=== PATIENT | male | born 1955 | race Two or more races ===

== ENCOUNTER 2016-05-03 08:50 | Inpatient (IN) | payer OTHER ==
[2016-05-03] VITALS (14 sets, daily range): BP systolic 120–154; BP diastolic 65–87; PULSE 55–74; RESP 14–19; O2SAT 96–100
[~2016-05-03] VITALS: Ht 180.3 cm; Wt 109.3 kg
[2016-05-03] MEDS: Lactated Ringer's 1,000 ML IV SCH ×5 (05:00→13:41)
[~2016-05-03 08:50] MED LIST: ATEN25TA PO; Acetaminophen IV 1,000 mg IV ONE; Bupivacaine Liposome 1.3% 20 mL Inj INFILTRATE ONE; CeFAZolin Inj 2 GM in IV Premix 1 EACH IV ONE; HYDR25TA4 PO; IBUP200C11 PO; LISI-567 PO
--- NOTE | 2016-05-03 10:05 | PCM.HPANE ---
Patient Data Surgeon Admitting Provider: Attending Provider:Eliel Kline MD Primary Care Physician:Miko Ortega MD Other Provider:Deleted Reason for Visit Pancreatic Mass Ht/WT & BMI Height (Feet): 5 Height (Inches): 11 Weight (Kilograms): 106.3 Body Mass Index 32.00 Allergies Coded Allergies: No Known Allergies (Unverified , 05/02/16) Past Anesthesia History Anesthesia History: Denies:: Abnormal Airway, Anesthesia Reactions, Difficult Intubation, Fam Anesthesia Reaction Diabetes History Hx Diabetes?: No MRSA MRSA: No Medications Hypertension Medication: Yes (?hctz- per pt in phone note- not documented on med list from md) Home Meds Incl Beta Jorge: Yes Date Beta Jorge Taken: May 03, 2016 Time Beta Jorge Taken: 0700 Reported Medications Atenolol 25 Mg [id number] Mg PO DAILY #30 TABLET Ref 0 05/02/16 Lisinopril 20 Mg [id number] Mg PO DAILY 30 Days Ref 0 05/02/16 Hydrochlorothiazide 25 Mg [id number] Mg PO DAILY 30 Days Ref 0 05/02/16 Ibuprofen (Advil)200 Mg [id number] Mg PO Q6H PRN For Pain 05/02/16 Discontinued Reported Medications Acetaminophen/Codeine 300-30mg (Tylenol/Codeine #3)1 Each Tablet1 Tablet PO Q6H PRN Pain Ref 0 05/02/16 History History of ENT Problems?: No HEENT History: Positive for:: Hearing Problem Denies:: Abnormal Airway Cataracts Difficult Intubation Dysphagia Glaucoma Sinus Problem TMJ Hx of Heart Problems?: Yes Cardiovascular History: Positive for:: Hypertension Denies:: AICD Abdominal Aortic Aneurism Atrial Fibrillation Chest Pain Coronary Artery Disease Heart Murmur Irregular Heartbeat Pacemaker Peripheral Vascular Hx of Respiratory Problem?: No Respiratory History: Denies:: Asthma COPD Emphysema Oxygen Administration Pneumonia Tuberculosis Use of C-PAP Machine Use of Inhalers / NEBS Hx Neurologic Problems?: No Neurological History: Denies:: CVA Dementia Dizziness Headaches Multiple Sclerosis Parkinson's Disease Seizures TIA Hx of GI Problems?: Yes Gastrointestinal History: Denies:: Cirrhosis Diverticulitis Gall Bladder Disease Gastroesphageal Reflux Gastrointestinal Bleeding Heartburn Hepatitis Hiatal Hernia Liver Disease Other GI Pertinent History: pancreatic mass current admission problem Hx of Problems?: No Genitourinary History: Denies:: Kidney Stones Urinary Tract Infection Male Hx: Positive for:: Scrotal Mass (currently has hydrocele- treatment deferred until pancreas resolved) Denies:: Prostate Problems Skin History: Denies:: History Skin Disorders? Pressure Ulcers Hx Musculoskeletal Problems?: No Musculoskeletal History: Denies:: Back Injury (recently pulled muscles in lower back) Degenerative Joint Fibromyalgia Joint Replacement Musculoskeletal Trauma Myasthenia Gravis Osteoarthritis Rheumatoid Arthritis Systemic Lupus Hx of Psycho/Social Problems?: No Psycho Social History: Denies:: Anxiety Hx Depression Hx Surgeries?: Yes (ventral hernia repair, appe) Hx Any Other Health Problems?: Yes Other History: Denies:: Cancer Thyroid Disease History Blood Transfusions: Positive for:: Accept Blood Products? Denies:: Blood Transfusions Hx Diabetes: No Hx Alcohol Use: YesAlcoholic Drinks Per Day: one drink daily- not for last two weeksHx Substance Use: Yes (occasional marijuana)Have You Smoked inLast 12 mo: No Stop/Bang Treated for Sleep Apnea?: No Do You Have a CPAP Machine?: No S-Snoring: Do You Snore Loudly: No T-Tired: feel tired, fatigued: No O-Obsered: Observed not breath: No P-Blood Pressure: treated: Yes B- Body Mass Index > 35 kg/m2: No A- Age over 50: Yes N- Neck Large Circumference: No G- Gender Male: Yes GENEVA Total Score: 3 GENEVA Risk Assessment: Low Risk, <3 Yes Risk Assessment Category Category 1A: Patient has history of documented sleep apnea, and HAS NOT received any narcotic, sedative or anesthesia administration during this stay. Category 1B: Patient has history of documented sleep apnea, and HAS received any narcotic , sedative or anesthesia administration during this stay Category 2: Patient has SUSPECTED Obstructive Sleep Apnea, and HAS received any narcotic , sedative or anesthesia administration during this stay. Category 3: Patient has SUSPECTED Obstructive Sleep Apnea and HAS NOT received narcotic, sedative or anesthesia administration during this stay. Category 4: Outpatient in Procedural Areas with known sleep apnea or who screen positive for High Risk via the STOP/BANG questionnaire. Exam Exam Vital Signs Vital Signs Date Time Temp Pulse Resp B/P Pulse Ox O2 Delivery O2 Flow Rate FiO2 05/03/16 09:07 36.2 61 16 138/87 98 Room Air General Appearance: Oriented X3 HEENT/AIRWAY: MP 2 Lungs: Normal Air Movement Heart: Regular Rate/Rhythm Meds/Labs/Diagnostics Admission Meds Current Medications Acetaminophen 1000 mg/Premix 100 ml @ 400 mls/hr OT ONCE IV Last administered on 05/03/16 09:24; Start 05/03/16 at 06:00; Stop 05/03/16 at 06:14 ; Status DC Lactated Ringer's (Lr) 1,000 ml @ 120 mls/hr Q8H20M IV Last administered on 09:23; Start 05/03/16 at 05:00; Stop 05/03/16 at 13:19 Plan Impression Patient chart reviewed, patient interviewed and anesthestic plan with risks, benefits, and alternatives discussed, and informed consent obtained. NPO Status: 0700 WATER WITH MEDS . BLACK COFFEE AT 0700 ASA Physical Status: ASA2 Mod Systemic Disease Anesthetic Support Modalities: Arterial Line Anesthetic Plan: GA Bene/Risks/Altern/Consents: Yes HP Complete Prior to Induction: Yes Mohamud Moe MD May 03, 2016 10:05
[2016-05-03] MEDS ORDERED: Bupivacaine Liposome 1.3% 20 mL Inj ONE (10:14)
[2016-05-03] MEDS ORDERED: Lactated Ringer's 500 ML IV PRN (10:54)
[2016-05-03] MEDS ORDERED: MetoCLOpramide 5 mg/mL 2 mL Inj IVPUSH PRN ×2 (10:55→14:15)
[2016-05-03] MEDS ORDERED: Ondansetron 2 mg/mL 2 mL Inj IVPUSH PRN ×2 (10:55→14:15)
[2016-05-03] MEDS ORDERED: fentaNYL-PF 50 mCg/mL 2 mL Inj IVPUSH PRN (10:55)
[2016-05-03] MEDS ORDERED: HYDROmorphone 1 mg/mL Inj IVPUSH PRN ×2 (10:55→16:45)
[2016-05-03] MEDS ORDERED: Phenylephrine 10,000 mCg/mL Inj IVPUSH PRN (10:55)
[2016-05-03] MEDS ORDERED: EPHEDrine Sulfate 50 mg/mL Inj IVPUSH PRN (10:55)
[2016-05-03] MEDS ORDERED: Dexamethasone 4 mg/mL Inj IVPUSH PRN (10:55)
[2016-05-03] MEDS ORDERED: Bupivacaine 0.5%/EPI 50 mL Inj INFILTRATE ONE (11:36)
[2016-05-03] MEDS ORDERED: BUPIVACAINE 0.25%/EPI 50 mL Inj INFILTRATE SCH (12:55)
[2016-05-03] MEDS ORDERED: Insulin Human REGular Inj 100 UNIT in 0.9% Sodium Chloride-Pha MIX 100 ML IV SCH (14:11)
[2016-05-03 14:42] LABS: BASOPHILS % (AUTO) 0.1 % (0-3); EOSINOPHILS % (AUTO) 0.2 % (0-5); MONOCYTES % (AUTO) 1.1 % (4-12); Mean Corpuscular Hemoglobin 30.1 pg (27.0-35.0); Mean Corpuscular Volume 87.2 fL (81-100); NEUTROPHILS % (AUTO) 93.2 % (40-74); Platelet Count 238 bil/L (150-400)
--- NOTE | 2016-05-03 14:54 | OP ---
[address] [address] OPERATIVE REPORT PATIENT: VASU PAREKH : 1955 MR#: [id number] ADMIT: 05/03/2016 JOB ID: [id number] DATE OF SURGERY: 05/03/2016 ANESTHESIA: General. PREOPERATIVE DIAGNOSIS(ES): Tail of pancreas mass. POSTOPERATIVE DIAGNOSIS(ES): Tail of pancreas mass. OPERATION: Laparoscopic hand-assisted distal pancreatectomy and splenectomy using intraoperative ultrasound with interpretation. SURGEON: Eliel Kline MD BEATER TENDER: 1. Gorge Mondragon MD (the geriatric assistant was required for the safe and timely completion of the case). 2. Jose Whitman PA-C. COMPLICATIONS: None. ESTIMATED BLOOD LOSS: 20 mL. CONDITION: Satisfactory. SPECIMEN: Tail of pancreas and spleen. FINDINGS: There was no evidence of metastatic disease. The intraoperative ultrasound of the liver was unremarkable. A standard distal pancreatectomy was performed. Frozen section demonstrated clear margin with a gross pathologic examination demonstrating at least a 2 cm margin. INDICATIONS AND SIGNIFICANT HISTORY: The patient is a 60-year-old man who is referred to me for a recurrent ventral incisional hernia. As part of my evaluation in anticipation of the repair of that, I obtained a CT scan which incidentally showed a 2.6 cm mass in the tail of the pancreas. We went on to get further characterization with pancreas protocol CT and then a tagged liver-spleen scan. There is no indication that this was ectopic splenic tissue. Given the image characteristics, recommendation was made for distal pancreatectomy and splenectomy. The patient received his splenectomy vaccines more than two weeks prior to surgery. OPERATIVE TECHNIQUE: The patient was taken into the operating room and placed in supine position. General anesthesia was administered and perioperative antibiotics were given. He was then placed in a semi right lateral decubitus position and the abdomen and flank were prepped and draped in standard surgical fashion. A Short catheter had been placed. A procedural pause was performed. Entry was then gained into the abdomen through a 5 mm incision in the left subcostal area using the Optiview trocar. Pneumoperitoneum was achieved without complication. An additional 5 mm port was inserted in the left subcostal area, as well as a 12 mm port in the left subcostal area. Two 5 mm ports were placed in the upper midline. Eventually those port incisions were combined to create a single hand port incision. I began totally laparoscopic by opening up the short gastrics. When entering the lesser sac a small serosal injury was made on the transverse colon. This was therefore closed laparoscopically with a 3-0 silk suture in two layers. After completely opening up the lesser sac, I used ultrasound to define the limits of the pancreatic tail lesion. I also ultrasounded the liver, which was unremarkable. The patient had a lot of intra-abdominal fat and at this point I decided to place a hand port in the midline to facilitate exposure. With a hand in, I was then easily able to expose the pancreas at the defined transection point. The splenic artery was cephalad to the pancreas and this was 1st circumferentially dissected free and three Hem-o-Loc clips were placed on it, and then it was transected with two clips on the stay side. I then dissected a retropancreatic tunnel and fired a DARREL 60 blue load with a SeamGuard across the pancreas and splenic vein. This was completely hemostatic. I then continued to work my dissection from the transitive pancreatic tail laterally. I also then turned to the splenic flexure and released the colon to create a safe path for ongoing dissection. We also mobilized the spleen. Eventually all my planes of dissection converged and the specimen was completely freed. This was placed in a large laparoscopic bag and then removed through the hand port incision. The surgical bed was inspected and found to be completely hemostatic. I then placed Tisseel along the pancreatic transsection staple line and the arterial stump. A 19-Nigerian ALEX drain was then placed in the area of the pancreatic transection and the omentum placed over the surgical bed. The drain was brought out through the left lateralmost 5 mm port site. The 12 mm trocar site was closed with 0 PDS suture with the laparoscopic suture passer. I then closed the hand port site using running 0 PDS suture. Skin was closed using 4-0 Monocryl. A rectus sheath block was placed using liposomal bupivacaine before completing the closure of the midline incision. The entire procedure was well tolerated, without complication. YSABEL
--- NOTE | 2016-05-03 15:30 | PCM.ANEP1 ---
Post Anesthesia Phase 1 PACU Phase 1 Assessment Vital Signs Vital Signs Date Time Temp Pulse Resp B/P Pulse Ox O2 Delivery O2 Flow Rate FiO2 05/03/16 14:50 57 17 136/80 100 Simple Mask 10 05/03/16 14:35 59 19 140/70 100 Simple Mask 10 05/03/16 14:20 60 15 131/71 100 Simple Mask 10 05/03/16 14:15 58 17 126/75 100 Simple Mask 10 05/03/16 14:10 59 14 127/65 99 Simple Mask 10 05/03/16 14:05 36.5 60 17 124/69 99 Simple Mask 10 05/03/16 14:03 36.6 120/70 05/03/16 09:07 36.2 61 16 138/87 98 Room Air Anesthetic Administered: GA Level of Alertness: Awake, talking Pain: No Nausea or Vomiting: No Oxygen Delivery: Room Air Lungs: Normal Air Movement Mohamud Moe MD May 03, 2016 15:30
--- NOTE | 2016-05-03 15:30 | PCM.ANEP2 ---
Post Anesthesia Evaluation ASA/CMS Post Anesthesia VS in Patient's Normal Range?: Yes Resp Stable; Airway Patent?: Yes CV Function & Hydration Stable: Yes Mental Status Recovered?: Yes Pain control Satisfactory?: Yes N/V Control Satisfactory?: Yes Mohamud Moe MD May 03, 2016 15:30
[2016-05-03] MEDS ORDERED: MetoCLOpramide 5 mg/mL 2 mL Inj ONE (16:17)
[2016-05-03] MEDS ORDERED: fentaNYL-PF 50 mCg/mL 2 mL Inj ONE (16:17)
[2016-05-03] MEDS ORDERED: Neostigmine 1 mg/mL 5 mL Inj ONE (16:17)
[2016-05-03] MEDS ORDERED: Glycopyrrolate 0.2 mg/mL 5 mL Inj ONE (16:17)
[2016-05-03] MEDS ORDERED: Ondansetron 2 mg/mL 2 mL Inj ONE (16:17)
[2016-05-03] MEDS ORDERED: Dexamethasone 4 mg/mL Inj ONE (16:17)
[2016-05-03] MEDS ORDERED: Propofol 10,000 mCg/mL 20 mL Inj ONE (16:17)
[2016-05-03] MEDS ORDERED: Rocuronium 10 mg/mL 5 mL Inj ONE (16:17)
[2016-05-03] MEDS ORDERED: 0.9% Sodium Chloride 100 ML ONE (16:38)
--- NOTE | 2016-05-03 17:01 | NUR ---
Post Op Pt was transferred to OSC room 1001 at 1600 via his bed. Pt is A&ox3. ARANA. Abdominal incisions are C/D/I. Kareem bulb to suction. Short catheter patent and draining to gravity. High flow oxygen mask at 10L O2 per protocol. Pt rates pain at 4/10. Care continues.
[2016-05-03] MEDS: Dextrose 5% Lactated Ringer's 1,000 ML IV SCH (17:49)
[2016-05-03] MEDS: Heparin 5,000 Unit/mL Inj SUBQ SCH (17:50)
[2016-05-03] MEDS: Acetaminophen IV 1,000 MG in IV Premix 1 EACH IV SCH ×2 (20:30→20:39)
[2016-05-03] MEDS: Insulin Human REGular 300 Unit/3 mL Inj SUBQ SCH (20:59)
[2016-05-04] VITALS (7 sets, daily range): BP systolic 129–157; BP diastolic 68–86; PULSE 70–90; RESP 17–20; O2SAT 89–98
[2016-05-04] MEDS: Heparin 5,000 Unit/mL Inj SUBQ SCH ×3 (01:36→18:43)
[2016-05-04] MEDS: Acetaminophen IV 1,000 MG in IV Premix 1 EACH IV SCH ×2 (02:34→10:08)
[2016-05-04] MEDS: Dextrose 5% Lactated Ringer's 1,000 ML IV SCH ×2 (02:41→15:11)
[2016-05-04] MEDS: Insulin Human REGular 300 Unit/3 mL Inj SUBQ SCH ×4 (02:44→20:35)
[2016-05-04 05:36] LABS: BASOPHILS % (AUTO) 0.1 % (0-3); EOSINOPHILS % (AUTO) 0 % (0-5); MONOCYTES % (AUTO) 12.2 % (4-12); Mean Corpuscular Volume 87.8 fL (81-100); NEUTROPHILS % (AUTO) 79.3 % (40-74); Platelet Count 200 bil/L (150-400)
[2016-05-04] MEDS ORDERED: Insulin Human REGular Inj 100 UNIT in 0.9% Sodium Chloride-Pha MIX 100 ML IV SCH (08:25)
[2016-05-04] MEDS ORDERED: Insulin Human REGular 300 Unit/3 mL Inj SUBQ SCH (08:30)
--- NOTE | 2016-05-04 10:59 | PROG NOTE ---
[address] [address] PROGRESS NOTE PATIENT: VASU PAREKH : 1955 MR#: [id number] ADMIT: 05/03/2016 JOB ID: [id number] DATE: 05/04/2016 SUBJECTIVE: The patient is seen postoperative day one from laparoscopic distal pancreatectomy and splenectomy for a tail of pancreas mass. The patient did fine overnight. His blood sugars were a little poorly controlled which is disappointing. OBJECTIVE: He has remained afebrile, hemodynamically normal. This morning he is alert, oriented and mildly uncomfortable but doing okay. His Short has clear urine in it. His abdomen is a little bit distended but soft and not significantly tender. His dressings are clean, dry, and intact. His ALEX drain remains in place with a little bit of bloody output. Yesterday, he had a total of 1.2 L of urine with an additional 800 overnight. His ALEX drain had 15 recorded out yesterday with additional five overnight. His blood sugar has been ranging in the mid 200s. His white blood cell count is 14.8 this morning, down from 15.8 in the postoperative period. His hematocrit is stable at 41. His creatinine is fine at 0.87. ASSESSMENT AND PLAN: This is a 60-year-old, obese male on postoperative day one from distal pancreatectomy and splenectomy for a tail of pancreas mass. Overall, the patient is doing well. His Short catheter can come out this morning. He can slowly advance his diet. I have encouraged him to get up and ambulate. I am not satisfied with his blood sugar control. I have ordered him to be placed on an insulin drip. I discussed this with the nurse. Target blood sugars range of 110-150. I hope that this is just perioperative stress hyperglycemia, although given that I did remove part of his pancreas, it is possible that he will require ongoing management of diabetes. I will wait and see how he does over the next day or so before considering starting him on long-term therapy. His ALEX drain looks okay. I have ordered ALEX drain amylase which is still pending. The ALEX drain will remain in to at least postoperative day three at which time another ALEX drain amylase will be checked. If there is any evidence of pancreatic leak, the ALEX drain will remain in until that has resolved.
[2016-05-04] MEDS: Polyethylene Glycol (PEG) 17 Gm Powder PO SCH (12:39)
--- NOTE | 2016-05-04 19:21 | NUR ---
BS/Activity Blood sugar checks q6 hours. Contact workplace relations adviser surgeon if blood sugars > 180 times 2. Patient up ambulating in room independently. Uses call light appropriate and requires assistance when getting back in bed. Call light and tray table within reach. Will continue to monitor patient hourly.
[2016-05-05] MEDS: Heparin 5,000 Unit/mL Inj SUBQ SCH ×3 (02:21→18:11)
[2016-05-05] MEDS: Insulin Human REGular 300 Unit/3 mL Inj SUBQ SCH ×4 (02:45→21:47)
[2016-05-05] MEDS: Dextrose 5% Lactated Ringer's 1,000 ML IV SCH ×2 (03:41→16:28)
--- NOTE | 2016-05-05 03:58 | NUR ---
BS/Pain pt first blood sugar check was 200 and he was given 4 units of insulin. at 0230 his BG was 143 and he was given another 2 units. will continue to monitor BG pt consistently rates his pain a 4/10 which he says is "good". 10 mg of oxycodone and 975mg of tylenol is being alternated for pain control. he is able to get out of bed without assistance, he walks slowly but he is steady on his feet. care continues.
[2016-05-05 06:07] LABS: Mean Corpuscular Hemoglobin 29.7 pg (27.0-35.0); Mean Corpuscular Volume 84.4 fL (81-100)
[2016-05-05 06:10] VITALS: BP 150/81; PULSE 86; RESP 17; O2SAT 89
--- NOTE | 2016-05-05 08:41 | PCM.PNSURG ---
Subjective Visit Information: Reason for Visit Pancreatic Mass Surgery/Surgery Date Post-Op Day # Date of Admission: May 03, 2016 at 16:16 Hospital Day # Subjective: having some pain, no flatus or BM yet since surgery, ALEX in place, abd slightly distended Objective Objective Awake in bed Abd: slight distention, some tenderness adjacent to LLQ incisions, ALEX --> serosang 5 cc recorded Vital Sign- Last 8 Hours Date Time Temp Pulse Resp B/P Pulse Ox O2 Delivery O2 Flow Rate FiO2 05/05/16 06:10 36.8 86 17 150/81 89 Room Air Intake and Output- Last 8 Hour 05/05/16 Cumulative From/Thru 07:00 05/02/16 12:03 - 05/05/16 05:48 Intake Total 1100 ml 5521 ml Output Total 1005 ml 3675 ml Balance 95 ml 1846 ml Intake Oral 1100 ml 2972 ml IV Total 2549 ml Output Urine Total 1000 ml 3550 ml Drainage Total 5 ml 45 ml Estimated Blood Loss 80 ml # Bowel Movements 0 0 Result Diagram: 05/05/16 0527 05/04/16 0505 Assessment & Plan Impression POD #2 s/p distal panc and splenectomy WBC 20.9 Problems: Plan Pain control Send ALEX fluid for amylase (ordered yesterday) Ambulate Await bowel function return Monitor WBC and platelet count Ventura Augustin MD May 05, 2016 08:41
[2016-05-05 10:10] VITALS: BP 128/71; PULSE 80; RESP 16; O2SAT 90
[2016-05-05] MEDS: Polyethylene Glycol (PEG) 17 Gm Powder PO SCH (11:35)
--- NOTE | 2016-05-05 14:38 | NUR ---
NUTRITION ASSESSMENT: ASSESS:60 YO male admitted with pancreatic mass, POD #2 following laparoscopic distal pancreatectomy and splenectomy, per SCOAP protocol. Patient c/o pain; there has been no flatus or BM since surgery, ALEX in place, abd slightly distended. Diet advanced to full liquids to include Impact Advanced Recovery. Patient taking sips of Impact and full liquids. PMHx:HTN, pancreatic mass, ventral hernia repair. DIET:Full liquids. LABS: Reviewed. No labs ordered today. MEDICATIONS: Reviewed. Insulin. NUTRITION FOCUSED PHYSICAL ASSESSMENT: GI symptoms / stool: No BM.Drew: 20 Skin Integrity: No issues reported. ANTHROPOMETRICS: Current Wt: 106.1 kgBMI: 32.0 kg/j6Bflia weight: 108.86 kg IBW: 78.18 kg (139% IBW) ESTIMATED NEEDS (GI SURGERY, CLASS I OBESITY): Calories: 1955 - 2345 kcal (25 - 30 kcal / kg IBW) Protein: 141 - 156 g protein (1.8 - 2.0 g / kg IBW) Fluid: 3183 mL (Approx. 30 mL / kg BW) NUTRITION DIAGNOSIS: 1)Increased nutrient needs related to SCOAP surgery, as evidenced by protocol that requires Impact Advanced Recovery all trays post-surgery. INTERVENTION: 1) No additional intervention at this time. MONITOR/EVALUATE: Diet advance / tolerance, PO intake, labs, GI/nutrition status. Follow up per moderate nutrition risk guidelines.
[2016-05-05 15:07] VITALS: BP 145/79; PULSE 83; RESP 20; O2SAT 88
[2016-05-05 17:11] VITALS: PULSE 82; RESP 18; O2SAT 93
--- NOTE | 2016-05-05 18:41 | NUR ---
Oxygen/NPO Pt up in BR at 1500 when ENDOSCOPY SPECIALTY TECHNICIAN went to do vitals and found pt O2 at 88%. NC applied to 2L and O2 remained at 88%. Increased to 3.5L and O2 was at 91%. Listened to lungs sounds and posterior lungs sounds especially at bases are markedly decreased. Reeducated pt that he needs to be coughing and deep breathing, but pt takes small shallow breathes even when encouraged. Pt's abdomen is distended and tender and pt is not passing gas or having BM. paged about all above and changed pt to NPO other than sips with meds, added D5LR at 80 and wants IS, which was previously ordered, but not in room. Last BG was 180, 2 units given and MD aware. Care continues.
--- NOTE | 2016-05-05 19:13 | NUR ---
IV Fluids Obtained verbal order for LR at [address] Augustin, then saw order for D5LR in computer and hung that at 1628. paged at 1705 asking why it wasn't LR. Stopped D5LR and hung new bag of LR. bracer RN aware.
[2016-05-05] MEDS ORDERED: Lactated Ringer's 1,000 ML IV SCH (19:45)
[2016-05-05 20:39] VITALS: BP 148/89; PULSE 83; RESP 20; O2SAT 92
[2016-05-06] VITALS: BP 145/72; PULSE 73; RESP 18; O2SAT 92
[2016-05-06] MEDS: Heparin 5,000 Unit/mL Inj SUBQ SCH ×4 (00:54→23:48)
[2016-05-06] MEDS: Insulin Human REGular 300 Unit/3 mL Inj SUBQ SCH ×4 (02:30→21:51)
[2016-05-06] MEDS: Dextrose 5% Lactated Ringer's 1,000 ML IV SCH (03:54)
[2016-05-06 05:37] VITALS: BP 153/82; PULSE 75; RESP 20; O2SAT 96
--- NOTE | 2016-05-06 05:50 | NUR ---
Pain/ALEX/Blood Glucose Pt c/o 08/18 pressure/gas pain at start of shift. Up several times to BR with some gas relief and small BM. Pt reported feeling "much better" this morning after IV Toradol administered at 0300. ALEX output 5cc, specimen sent for amylase. Patient encouraged to ambulate, deep breathe and use IS hourly. Midline dressing CDI. Q6 Glucose checks: 156, 136
[2016-05-06 06:21] LABS: BASOPHILS % (AUTO) 0.1 % (0-3); EOSINOPHILS % (AUTO) 0.8 % (0-5); MONOCYTES % (AUTO) 9.6 % (4-12); Mean Corpuscular Hemoglobin 29.7 pg (27.0-35.0); Mean Corpuscular Volume 89.9 fL (81-100); NEUTROPHILS % (AUTO) 82.3 % (40-74); Platelet Count 173 bil/L (150-400)
--- NOTE | 2016-05-06 07:59 | PCM.PNSURG ---
Subjective Visit Information: Reason for Visit Pancreatic Mass Surgery/Surgery Date Post-Op Day # Date of Admission: May 03, 2016 at 16:16 Hospital Day # Subjective: feels much better now that he's passed quite a bit of gas, no BM Objective Objective Arousable in bed Abd: still distended, incisions clean, soft Vital Sign- Last 8 Hours Date Time Temp Pulse Resp B/P Pulse Ox O2 Delivery O2 Flow Rate FiO2 05/06/16 05:37 36.8 75 20 153/82 96 Nasal Cannula 3.00 05/06/16 03:43 Supplement Oxygen Intake and Output- Last 8 Hour 05/06/16 Cumulative From/Thru 07:00 05/02/16 12:03 - 05/06/16 05:39 Intake Total 875 ml 7615 ml Output Total 555 ml 4706 ml Balance 320 ml 2909 ml Intake Oral 0 ml 4080 ml IV Total 875 ml 3535 ml Output Urine Total 550 ml 4550 ml Drainage Total 5 ml 76 ml Estimated Blood Loss 80 ml # Bowel Movements 1 1 Result Diagram: 05/06/1630 05/06/1630 Assessment & Plan Impression POD #3 s/p distal panc and splenectomy WBC down to 18 Problems: Plan Restart clear liquids Ambulate Re-check ALEX amylase again today Incentive spirometer Pain control Ventura Augustin MD May 06, 2016 07:58
[2016-05-06 10:00] VITALS: BP 128/68; PULSE 72; RESP 19; O2SAT 95
--- NOTE | 2016-05-06 11:02 | NUR ---
Social Work- Assessment Data: Pt is a 60 year old male admitted 05/03/16 for pancreatic mass per H&P. Pt's insurance is [employer]. PCP is Miko Ortega MD. SW spoke with patient at bedside to discuss discharge planning, SW role explained. Pt alert and oriented x3. Pt resides in [place] with where he remains independent with his ADLs. Pt uses no DME and has no SNF or HH history. Pt continues to drive. SW discussed DPOA, left paperwork. Pt has no LTC or VA benefits. Pt continues to ambulate in room and dickerson. SW left phone number and plan on whiteboard. Pt to discharge home with to transport, no anticipated discharge needs. SW will continue to follow. Assessment: Pt who is independent at discharge Plan: Pt to discharge home when medically stable, to transport via POV. No anticipated discharge needs, SW continues to follow. Sharon Gallegos MSW
[2016-05-06] MEDS: Polyethylene Glycol (PEG) 17 Gm Powder PO SCH (12:23)
--- NOTE | 2016-05-06 14:49 | NUR ---
Pain, activity Pt reports a 1/10 pain at rest and 3/10 pain w/ activity. PO Tylenol administered as per schedule. Pt encouraged to ambulate throughout shift. So far he has made 7 laps around the department w/ steady gait Passing gas, although, painful. Offered IVP Toradol and PO Mary, pt has declined. Bed down and locked, call light w/in reach and used appropriately
[2016-05-06 15:18] VITALS: BP 135/77; PULSE 76; RESP 18; O2SAT 91
--- NOTE | 2016-05-06 18:50 | NUR ---
patient has ambulated the halls multiple times throughout this shift with no difficulties. Addendum: 05/06/16 at 1851 by MARTINE LINDSYA CNA Amended: Links added.
[2016-05-07] MEDS: Insulin Human REGular 300 Unit/3 mL Inj SUBQ SCH ×4 (02:30→20:30)
[2016-05-07 03:51] VITALS: BP 153/83; PULSE 75; RESP 20; O2SAT 93
--- NOTE | 2016-05-07 05:03 | NUR ---
Pain/IV Pt continues to have c/o gas pressure, states 2/10 which is tolerable. Receiving routine tylenol q6hrs, up in room moving around and back/forth to restroom. IV not patent and coming out, causing pain- no IV fluids running- D/C'd IV intact.
[2016-05-07 06:57] LABS: BASOPHILS % (AUTO) 0.2 % (0-3); EOSINOPHILS % (AUTO) 5.5 % (0-5); MONOCYTES % (AUTO) 10.7 % (4-12); Mean Corpuscular Hemoglobin 29.1 pg (27.0-35.0); Mean Corpuscular Volume 88.6 fL (81-100); Platelet Count 215 bil/L (150-400)
[2016-05-07] MEDS: Heparin 5,000 Unit/mL Inj SUBQ SCH ×2 (10:15→16:30)
--- NOTE | 2016-05-07 10:24 | PCM.PNSURG ---
Subjective Date of Service: May 07, 2016 Visit Information: Reason for Visit Pancreatic Mass Surgery/Surgery Date Post-Op Day #4 Date of Admission: May 03, 2016 at 16:16 Hospital Day # Subjective: Requesting more substantial food and hospital discharge. IV is out. No need for analgesic as the patient has no pain. Drinking liquids with no nausea or vomiting, minimal bloating. Passing flatus but has not had a bowel movement. Ambulating without assistance. Postop General: Other (as above) Gastrointestinal: Good Appetite, Tolerating Oral Feedings, No N/V, Passing Flatus Pain Management: No or Minimal Pain Postop Activity: Ambulating Independently Objective Vital Sign- Last 8 Hours Date Time Temp Pulse Resp B/P Pulse Ox O2 Delivery O2 Flow Rate FiO2 05/07/16 03:51 36.6 75 20 153/83 93 Room Air Intake and Output- Last 8 Hour 05/07/16 Cumulative From/Thru 07:00 05/02/16 12:03 - 05/07/16 03:51 Intake Total 800 ml 9314 ml Output Total 795 ml 6306 ml Balance 5 ml 3008 ml Intake Oral 800 ml 5500 ml IV Total 3814 ml Output Urine Total 775 ml 6125 ml Drainage Total 20 ml 101 ml Estimated Blood Loss 80 ml # Bowel Movements 0 1 General: Alert, Cooperative, No Acute Distress Lungs: Clear to Auscultation Heart: Regular Rate/Rhythm, No Murmurs/Rubs/Gallops Abdomen: Soft, Non-tender, Non-distended SURGICAL WOUND : Wound General Appearence: Steri Strips, Sutures, Intact, Well Approximated, No Erythema, No Discharge Wound Drainage Type: ALEX Drain #1 (20 mL of serosanguineous output over the last 8 hours.) Extremities: Thigh&Calf Soft/Nontender Neuro: Normal Speech Catheters: None (voiding without difficulty) Result Diagram: 05/07/16 0635 05/06/16 0530 Additional Information: Most recent bedside fingerstick glucose is 117 Assessment & Plan Impression Primary diagnosis: Tail of pancreas mass, pathology pending. POD #4 with stable blood sugars, returning bowel function, and healing wounds. Other diagnosis: Hypertension Problems: Plan 1. Soft diet. 2. If soft diet tolerated the patient will be discharged to home today with ALEX and return next week in follow-up with Dr. Kline. 3. May shower Pain Management: 1. Oral Tylenol 2. Oxycodone for breakthrough pain. VTE Prophylaxis: Sub-Q Heparin (Unfractionated) Resuscitation Status: CPR: Attempt Resuscitation copies to: Miko Ortega MD, Fred H PA-C May 07, 2016 10:24
--- NOTE | 2016-05-07 10:30 | PCM.DISURG ---
Surgical Discharge Instruction Date of Service May 07, 2016 Dates of Hospitalization Date of Hospital Admission May 03, 2016 at 16:16 Providers Admitting Physician: Eliel Kline MD Primary Care Physician: Miko Ortega MD Attending Physician: Eliel Kline MD Discharge Diagnosis Discharge Diagnosis Primary diagnosis: Tail of pancreas mass, pathology pending. Other diagnosis: Hypertension Post Operative diagnosis Same Diet Discharge Diet: Other (soft diet, advance as tolerated) Activity Discharge Activity-General: Try not to overdue, Balance rest and activity, No driving while taking narcotic Dressing and Incisional Care Dressing Care: Allow Steri Stripes to fall off Hygiene: May shower Additional Instructions Discharge Instructions Nursing to instruct the patient on how to advance his diet. Additional Instructions ALEX drainage for random amylase on follow-up appointment. Follow Up Plan Follow-up Provider (F9): Eliel Kline MD Follow-up appointment: Weeks (1 week) Call your provider for: Fever, Chills, Increasing abdominal pain, Nausea, Vomiting, Wound redness, Increasing wound pain, Warmth to touch, Discharge @ incision, pus discharge Jose Whitman PA-C May 07, 2016 10:30 Jose Whitman PA-C May 07, 2016 10:30
[2016-05-07] MEDS ORDERED: OXYC5TAB72 PO (10:33)
[2016-05-07] MEDS ORDERED: POLY17PO6 PO (10:33)
--- NOTE | 2016-05-07 10:43 | NUR ---
Social Work- Readiness for Discharge/Discharge Data: Pt is on day 4 of hospitalization for pancreatic mass per H&P. Pt is medically stable for discharge today. Per RN notes, pt has been up ambulating in the [facility]. Pt to discharge home with to transport, no discharge needs. Assessment: Pt who is independent at discharge Plan: Pt to discharge home today, to transport via POV. No discharge needs, ZACHARY Page
--- NOTE | 2016-05-07 10:44 | PCM.DC.SUR ---
Discharge Summary Date of Service: May 07, 2016 Date of Hospital Admission: May 03, 2016 at 16:16 Date of Operation(s): 05/03/2016 Date of Discharge: 05/07/2016 Diagnosis at Time of Discharge Primary diagnosis: Tail of pancreas mass, pathology pending. Other diagnosis: Hypertension Problems: Operation Laparoscopic hand-assisted distal pancreatectomy and splenectomy using intraoperative ultrasound with interpretation. Brief History and Physical: The patient is a 60-year-old man who was referred for a recurrent ventral incisional hernia. As part of his evaluation in anticipation of the repair of that, a CT scan was obtained which incidentally showed a 2.6 cm mass in the tail of the pancreas. Further characterization with pancreas protocol CT and then a tagged liver-spleen scan was obtained. There was no indication that this was ectopic splenic tissue. Given the image characteristics, recommendation was made for distal pancreatectomy and splenectomy. The patient received his splenectomy vaccines more than two weeks prior to surgery Consultants: None Hospital Course: The patient was admitted and underwent the above-mentioned operation without complication. Postsurgical hyperglycemia was treated with intravenous insulin infusion. Fingerstick blood glucose was 117 at the time of discharge. ALEX drain amylase on the second and third postsurgical day was 460 and 578. The patient was discharged to home with ALEX in place. A repeat ALEX drain random amylase will be obtained at his clinic follow-up visit. Otherwise the patient' s recovery was fairly uneventful. At the time of discharge the patient was tolerating a soft diet with no nausea or vomiting, he was passing flatus, his wounds were dry and intact, he was ambulating without assistance, and comfortable with only Tylenol for pain control. Pathology: Pending Disposition: The patient was discharged to home on his fourth postsurgical day. Follow-up Plan: He will follow-up in the office with Dr. Kline with a repeat ALEX drainage amylase in 1 week. Atenolol (Atenolol) 25 Mg Tablet 25 MG PO DAILY (Reported) Hydrochlorothiazide (Hydrochlorothiazide) 25 Mg Tablet 25 MG PO DAILY (Reported ) Ibuprofen (Advil) 200 Mg Capsule 800 MG PO Q6H PRN PRN For Pain (Reported) Lisinopril (Lisinopril) 20 Mg Tablet 20 MG PO DAILY (Reported) Polyethylene Glycol 3350 (Miralax) 17 Gm Powd.pack 17 GM PO NOON oxyCODONE (oxyCODONE) 5 Mg Tablet 5-10 MG PO Q6H PRN PRN For Moderate Pain copies to: Miko Ortega MD, Fred H PA-C May 07, 2016 10:44
[2016-05-07] MEDS: Polyethylene Glycol (PEG) 17 Gm Powder PO SCH (12:00)
[2016-05-07 12:51] VITALS: BP 124/73; PULSE 73; RESP 16; O2SAT 94
--- NOTE | 2016-05-07 19:35 | NUR ---
Blood Glucose Pt's AM BG 154. MD had planned discharge, but wanted pt to eat soft diet and see if tolerated and recheck BG prior to leaving. Pt able to tolerate toast this AM and lunch w/o N/V or any pain. Pt able to have large BM today. PM BG was 192, 2 units given and discharge held for tomorrow. MD will recheck in AM. Pt upset and anxious over BG control and is wanting glucometer for home, so he can keep track. Advised to discuss with MD tomorrow.
[2016-05-07 20:05] VITALS: BP 146/82; PULSE 72; RESP 17; O2SAT 95
[2016-05-08] MEDS: Insulin Human REGular 300 Unit/3 mL Inj SUBQ SCH ×2 (01:24→08:30)
[2016-05-08] MEDS: Heparin 5,000 Unit/mL Inj SUBQ SCH ×2 (01:24→08:30)
[2016-05-08 05:18] VITALS: BP 162/90; PULSE 77; RESP 17; O2SAT 94
--- NOTE | 2016-05-08 05:48 | NUR ---
Sleep/Pain/Blood sugar Pt requested ambien at for sleep and refused his 0230 tylenol. He states the ambien was only helpful for 3hrs. Stated his pain 03/20 and did not want routine tylenol. Blood sugar 123 and 116.
[2016-05-08] MEDS ORDERED: INSU100V28 SUBQ (08:22)
[2016-05-08 08:30] VITALS: BP 150/89; PULSE 83; RESP 16; O2SAT 95
--- NOTE | 2016-05-08 10:22 | PROG NOTE ---
[address] [address] PROGRESS NOTE PATIENT: VASU PAREKH : 1955 MR#: [id number] ADMIT: 05/03/2016 JOB ID: [id number] DATE: 05/08/2016 SUBJECTIVE: The patient is seen postoperative day five from his laparoscopic hand assisted distal pancreatectomy and splenectomy. 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 The patient continues to do well and is very eager to go home. The plan had been for him to discharge yesterday, but due to elevated blood sugars, he was kept for an additional night. His blood sugars this morning have been well controlled at 120. He has remained afebrile. Hemodynamically normal. This morning he is up. He is alert and oriented and comfortable. His incision looks fine. He is having minimal abdominal pain. ASSESSMENT AND PLAN: This is a 60-year-old man five days out from a laparoscopic distal pancreatectomy, splenectomy for a well-differentiated neuroendocrine tumor. The patient can go home today. I am going to send him home on a sliding insulin scale. I anticipate that his insulin requirements are going to continue to decrease and that this will just be a short-term medication. He is going to go home with his ALEX drain in and I will followup in the clinic with a ALEX drain and amylase recheck later this week or early next week.
--- NOTE | 2016-05-08 11:17 | NUR ---
Discharge Pt discharged at 1106 to private vehicle with . Pt A&O x 3, ARANA, no c/o pain. Incisions well approximated with steri-strips intact. ALEX drain set to suction and pt educated on how to strip drain, measure output and reset to suction. Pt has all discharge instructions, care notes and rx's. Pt understands he needs to call MD office for f/u appt and to have fluid in drain for that appt. Blood glucose and insulin teaching done prior to discharge by MOC RN. Pt had no IV. Pt has all belongings and all questions answered. Pt understands s/s of when he would need to return to hospital.
== END 2016-05-08 11:07 | disposition home or self-care (01) | DRG 828 ==
LOC: SAS 08:50 → OSC 16:16
PROVIDERS: ADMIT General Practice; ATTEND General Practice
PROC: 07TP0ZZ Resection of Spleen, Open Approach (ICD-10-PCS; 2016-05-03)
PROC: 0FBG0ZX Excision of Pancreas, Open Approach, Diagnostic (ICD-10-PCS; principal; 2016-05-03 10:45)
DX: C7A.8 Other malignant neuroendocrine tumors (principal); Z53.31 Laparoscopic surgical procedure converted to open procedure; I10 Essential (primary) hypertension

== ENCOUNTER 2016-05-10 20:30 | Inpatient (IN) | payer OTHER ==
[~2016-05-10] VITALS: Ht 180.3 cm; Wt 102.4 kg
[~2016-05-10 20:30] MED LIST changes: -Acetaminophen IV 1,000 mg IV ONE; -Bupivacaine Liposome 1.3% 20 mL Inj INFILTRATE ONE; -CeFAZolin Inj 2 GM in IV Premix 1 EACH IV ONE; +INSU100V28 SUBQ; +OXYC5TAB72 PO; +POLY17PO6 PO
[2016-05-10 21:55] VITALS: BP 142/74; PULSE 103; RESP 22; O2SAT 95
--- NOTE | 2016-05-10 22:00 | NUR ---
NEW ADMIT Pt arrived from [facility] were had complained of crushing chest pain. Pt was given nitro which did relieve the chest pain. Pt recently had an abdominal surgery to removed a tumor in his pancreas and spleen. Pt was discharged from [facility] on Saturday but went to [facility] with the chest pain and a fever, WBC was 19.5, chest x-ray showed possible pneumonia. Pt is independent in the room, vitals stable, admission assessment complete. No other issues noted at this time.
[2016-05-10 22:18] VITALS: PULSE 101
[2016-05-10] MEDS ORDERED: Polyethylene Glycol (PEG) 17 Gm Powder PO ONE (22:30)
[2016-05-10] MEDS ORDERED: Ondansetron 2 mg/mL 2 mL Inj IVPUSH PRN (22:30)
[2016-05-10] MEDS ORDERED: Glucose 40% Oral Gel 15 Gm Tube PO PRN (22:35)
[2016-05-10] MEDS ORDERED: Piper-Tazo 3.375 Gm/50 mL D5W Minibag Plus - Q8H over 4 hrs IV ONE ×2 (22:45)
[2016-05-10] MEDS: Lactated Ringer's 1,000 ML IV SCH (22:55)
[2016-05-11] VITALS (10 sets, daily range): BP systolic 107–168; BP diastolic 56–104; PULSE 75–100; RESP 18–40; O2SAT 91–96
--- NOTE | 2016-05-11 00:29 | HP ---
[address] [address] HISTORY AND PHYSICAL PATIENT: VASU PAREKH : 1955 MR#: [id number] ADMIT: 05/10/2016 JOB ID: [id number] IDENTIFICATION AND CHIEF COMPLAINT: A 60-year-old man admitted with postoperative fever. HISTORY OF PRESENT ILLNESS: The patient was recently discharged from the hospital on May 07, having undergone a laparoscopic hand-assisted distal pancreatectomy and splenectomy on May 03, 2016. He reports doing well at home and then having left chest pain today. He called his son, who told him to call 911, and he was taking at [facility], where he had a negative cardiac workup but was noted to have a temperature of 103 degrees, an elevated white blood cell count and an abnormal CT scan. According to the patient, his chest pain has resolved. He tells me that his Shahram-Hawkins drain that he went home with has only put out 3 cc over the previous 24 hours of clear fluid. He denies night sweats or feeling febrile. He actually feels quite well at this moment. PAST MEDICAL HISTORY: Hypertension, recent elevated blood glucoses following his distal pancreatectomy, known umbilical hernia. MEDICATIONS: Atenolol, lisinopril, hydrochlorothiazide, ibuprofen, sliding scale insulin per Dr. Kline. ALLERGIES: None. SOCIAL HISTORY: Unchanged since recent history and physical. FAMILY HISTORY: Unchanged since recent history and physical. REVIEW OF SYSTEMS: Unchanged since recent history and physical. PHYSICAL EXAMINATION: Temperature is 37.4, blood pressure is 142/74, heart rate is 100, respirations 22, room air saturation 95%. He appears in no acute distress. Lungs are clear. Heart sounds are regular. His abdomen is soft. His incisions are healing well. Shahram-Hawkins drain has serous fluid, minimal amount of fluid in the bulb. Rectal examination is not performed. Extremities without edema. Labs from [facility] are reported as a hematocrit of 36.8 (his hematocrit was 38 on discharge), white blood cell count of 19.5 with 88.2% of neutrophils. Electrolytes are relatively normal with a sodium of 135, potassium of 3.6, chloride of 97, and a bicarb of 28. BUN and creatinine show an elevated BUN of 22 and a creatinine of 0.7. Liver function tests show a normal bilirubin, mild elevation of alkaline phosphatase at 147, and elevated AST and ALT at 81 and 181. His blood glucose is elevated at 165. Albumin is 3.2. UA was negative. His CT scan, I have reviewed the films, as well as the report. This shows the Shahram-Hawkins drain in the left upper quadrant and what appears to be a fair amount of fluid versus phlegmon in the pancreatic bed. There are small bubbles of free air that I think that are up over the liver and in the midline, and I think are not inconsistent with having had a hand-assisted laparoscopic pancreatectomy and splenectomy back just 1-2 weeks ago. IMPRESSION AND PLAN: Postop fever documented to 103 degrees at the other institution. He is currently afebrile, does not appear in significant distress. He reportedly received a dose of broad-spectrum IV antibiotics at [facility]. I will admit him to the progressive care unit, give him some IV fluid and clear liquids, put him on sliding scale insulin, continue his p.o. antihypertensives. I will start him on Zosyn, recheck his white count in the morning. I will leave it up to Dr. Kline regarding further workup regarding his abdomen. I suspect that he has fluid that is loculated off from his Shahram-Hawkins drain and that he may have benefit from Intervention Radiology placing a drain in the phlegmon.
[2016-05-11 03:05] LABS: BASOPHILS % (AUTO) 0.2 % (0-3); EOSINOPHILS % (AUTO) 0.2 % (0-5); MONOCYTES % (AUTO) 8.7 % (4-12); Mean Corpuscular Hemoglobin 29.6 pg (27.0-35.0); Platelet Count 358 bil/L (150-400)
--- NOTE | 2016-05-11 05:24 | NUR ---
BLOOD SUGARS/ALEX DRAIN Pt had a pancreatectomy and splenectomy due to a tumor. Pt's blood sugars were 146 last night, no correctional sliding scale insulin given. Pt's ALEX drain to the LUQ had minimal output < 5cc of serosanguineous fluid. Pt is cooperative and compliant with care. Uneventful night, no other issues noted.
[2016-05-11] MEDS: Insulin LISPRO 300 Unit/3 mL Inj SUBQ SCH ×4 (08:00→21:38)
[2016-05-11] MEDS: Piperacillin-Tazo 3.375 Gm Inj 3.375 GM in Dextrose 5% Minibag Plus 50 ML IV SCH ×2 (08:19→16:55)
--- NOTE | 2016-05-11 08:20 | PROG NOTE ---
[address] [address] PROGRESS NOTE PATIENT: VASU PAREKH : 1955 MR#: [id number] ADMIT: 05/10/2016 JOB ID: [id number] DATE: 05/11/2016 SUBJECTIVE: The patient is seen in followup for his readmission after recent distal pancreatectomy. The patient tells me he is overall doing okay. He denies any pain. He tells me that prior to admission he was tolerating a regular diet having good bowel function. He is having a little bit of difficulty taking a deep breath, but he is not sure why. He was tachycardic upon admission. This morning he is afebrile and hemodynamically normal. He is alert and oriented and appears comfortable. His abdomen is soft, nontender, nondistended. His incision looks fine. His ALEX drain is putting out scant output with only 5 cc recorded overnight. LABORATORIES: Work early this morning showed a white blood cell count of 25.8, hematocrit of 37.5, a creatinine of 0.77, a blood sugar of 160. ASSESSMENT AND PLAN: This is a 60-year-old man status post recent distal pancreatectomy admitted with what looks like uncontrolled pancreatic leak. I reviewed his outside images. This shows a phlegmon at the transection point of the pancreas consistent with a leak. Unfortunately his surgical drain is not in the vicinity. I have requested IR to place a drain into that collection. I anticipate once this is drained, he is going to have rapid improvement. He can remain on Zosyn for the time being. YSABEL
[2016-05-11 09:15] LABS: INR 1.11 ratio
[2016-05-11] MEDS: Lactated Ringer's 1,000 ML IV SCH (09:46)
[2016-05-11] MEDS ORDERED: fentaNYL-PF 50 mCg/mL 2 mL Inj ONE ×2 (10:56→10:58)
[2016-05-11] MEDS ORDERED: Flumazenil 0.1 mg/mL 5 mL Inj IV ONE (10:57)
[2016-05-11] MEDS: Polyethylene Glycol (PEG) 17 Gm Powder PO SCH (12:00)
--- NOTE | 2016-05-11 13:44 | NUR ---
Drain placement: Pt off unit at 1045 to interventional radiology for drain placement, procedural sedation and recovery by Wily Valdez RN.
--- NOTE | 2016-05-11 14:06 | NUR ---
PCC Patient returned to PCC room 2010 at 1215 from interventional radiology where patient received left flank drain placement. Patient tolerated procedure well, sample sent to lab by MD. NUNEZ during procedure, patient received 200 mcg or Fentanyl for pain, and 2mg Midazolam for sedation. Patient back in room appears anxious respiratory rat in low to mid 30's. O2 sat 90-92, etCO2 35-40, 5L NC. Patient encouraged to slow breathing down with slow exportations, IS used x3, and HR 90's BP 150-160/90. Patient state pain 4/10, vital signs q15min x4 then q30 x4. Using urinal for void x1, sitting on edge to bed, lung sound decreased at bases, drain site c/d/i, serosang drainage (20mls).
--- NOTE | 2016-05-11 14:36 | DRSVH ---
PROCEDURE: 1. CT-guided drainage of peripancreatic fluid collection. 2. Conscious sedation x30 minutes. INDICATIONS: Pancreatic leak with resulting peripancreatic/greater curvature fluid collection. COMPARISON: [facility], CT, ABDOMEN/PELVIS WITH CONTRAST, 05/10/2016, 17:25. TECHNIQUE: Informed, written consent from the patient was obtained prior to the procedure. Patient wa s brought to the CT suite, and conscious sedation was administered intravenously by longterm s taff, while continuous cardiorespiratory monitoring was performed. Maximal sterile barrier technique, hand hygiene and skin preparation were followed. A mask, sterile gown, sterile gloves, a large steri le sheet, hand hygiene, and 2% chlorhexidine or iodine was utilized for skin antisepsis. Elevating Grader Operator CT celine ging of the peripancreatic fluid collection was performed with overlying localization grid. The appro priate cutaneous site for percutaneous access to the peripancreatic fluid was marked, prepped and therese ped sterilely, and infusion of lidocaine. Under CT guidance, an 18 gauge needle was advanced into the peripancreatic fluid collection, through which an 035 J-wire was advanced, over which sequential dil ators were placed, followed by advancement of a 10 Niuean drainage catheter, the pigtail of which was formed in the fluid collection. Roughly 40 cc of bloody material were aspirated, and sent to samantha espinal for analysis. Catheter was fastened to the skin surface. FINDINGS: At the conclusion of the procedure, the pigtail of the catheter is within the fluid collec tion which is decreased. IMPRESSION: 10 Niuean percutaneous pigtail drainage of peripancreatic fluid collection. Dictated by: Jacob Nelson M.D. on 05/11/2016 at 14:29 Approved by: Jacob Nelson M.D. on 05/11/2016 at 14:34
--- NOTE | 2016-05-11 15:47 | NUR ---
Diaphoresis: Pt intermittently diaphoretic, but increased after having pigtail drain placed. VSS, tele SR/ST 90s-100s, blood sugars WNL. MD notified, no new orders. Reassured pt and family that MD felt that this was a normal reaction to the drain placement and elevated WBC count. Care ongoing.
--- NOTE | 2016-05-11 17:39 | NUR ---
Social Work: Screen D: Per EMR review, pt is a 60 year old male admitted for Post-Op Fever. Pt is [employer] insurance. PCP is Miko Ortega MD. NOK Is Hui Martinezs, spouse. Advanced directives information provided to pt during admission. Readmit score is moderate, 4/8. Pt is a readmit was was recently discharged home with no sw needs. Pt lives in [place] with his spouse. He is I at baseline and uses no DME. Pt currently being followed by general surgery. a pigtail drain was placed today and pt currently on IV ABX. A: Pt who is I at baseline. P: Anticipate pt to discharge home via POV once medically stable; PATROL AGENT to continue to follow pt's clinical course and r/o any potential discharge needs. NO needs identified at this time. Angela Cooper MSW
[2016-05-12] VITALS (8 sets, daily range): BP systolic 91–115; BP diastolic 58–62; PULSE 68–83; RESP 18–22; O2SAT 92–95
[2016-05-12] MEDS: Piperacillin-Tazo 3.375 Gm Inj 3.375 GM in Dextrose 5% Minibag Plus 50 ML IV SCH ×3 (00:25→17:00)
[2016-05-12] MEDS: diphenhydrAMINE 25 mg Capsule PO PRN ×2 (00:28→21:31)
[2016-05-12 03:32] LABS: Mean Corpuscular Hemoglobin 29.9 pg (27.0-35.0); Mean Corpuscular Volume 88.2 fL (81-100)
--- NOTE | 2016-05-12 04:34 | NUR ---
Pain: Pt. complaining of 2-6/10 abdominal pain during shift. Pt. medicated with PRN Tylenol, PRN ibuprofen, and PRN Oxycodone during shift. Best pain relief reported post PRN ibuprofen administration. Pt. slept intermittently, at edge of bed per pt. position of comfort. Pt. ambulating in room independently, gait strong and steady.
[2016-05-12] MEDS: Insulin LISPRO 300 Unit/3 mL Inj SUBQ SCH ×4 (08:25→21:33)
[2016-05-12] MEDS: Polyethylene Glycol (PEG) 17 Gm Powder PO SCH (12:00)
--- NOTE | 2016-05-12 12:56 | PROG NOTE ---
[address] [address] PROGRESS NOTE PATIENT: VASU PAREKH : 1955 MR#: [id number] ADMIT: 05/10/2016 JOB ID: [id number] DATE: 05/12/2016 SUBJECTIVE: The patient is afebrile, normotensive, pulse in the 60s and 70s. He feels well. His Shahram-Hawkins drain put out 45 cc of clear fluid yesterday and his other drain put out 30 cc of bloody fluid. On examination, he looks well, his abdomen is soft. Shahram-Hawkins drain has serous fluid in it. The gravity drain that was placed in yesterday has bloody fluid in it. LABORATORY DATA: Show that his white count remains elevated at 22.7. His hematocrit is 36. His chemistries are more or less normal, though his glucose was 160. AST and ALT are elevated and his lipase is 36. His bedside glucose at noon was 136. Microbiology shows preliminary no growth from his fluid from the abscess cavity that was tapped yesterday with no organisms seen on Gram stain. IMPRESSION AND PLAN: He has remained afebrile on antibiotics this hospitalization, his blood pressure is well controlled on his usual outpatient medications. At this point, we will continue his IV antibiotics, follow his white count and his clinical situation. I will check other markers of intra-abdominal inflammation and the question will still remain as to whether he has undrained infected fluid in his abdominal cavity. Hopefully his white count will drop significantly tomorrow. YSABEL
[2016-05-13] VITALS (8 sets, daily range): BP systolic 98–122; BP diastolic 57–73; PULSE 72–102; RESP 16–18; O2SAT 91–97
[2016-05-13] MEDS: Piperacillin-Tazo 3.375 Gm Inj 3.375 GM in Dextrose 5% Minibag Plus 50 ML IV SCH ×3 (00:52→20:57)
[2016-05-13 02:49] LABS: BASOPHILS % (AUTO) 0.2 % (0-3); EOSINOPHILS % (AUTO) 1.3 % (0-5); MONOCYTES % (AUTO) 7.2 % (4-12); Mean Corpuscular Hemoglobin 29.6 pg (27.0-35.0); Mean Corpuscular Volume 87.2 fL (81-100); NEUTROPHILS % (AUTO) 84.4 % (40-74)
[2016-05-13 03:11] LABS: Platelet Count 448 bil/L (150-400)
--- NOTE | 2016-05-13 06:19 | NUR ---
Activity: Pt. ambulating independently in room throughout shift. Gait strong and steady, tolerates activity well. Pt. appears to be in better spirits this shift in comparison to prior mini shifter. Pt. remains anxious, however is easily calmed by nursing staff. No overt signs or symptoms of distress during shift.
[2016-05-13] MEDS: Insulin LISPRO 300 Unit/3 mL Inj SUBQ SCH ×4 (08:00→21:34)
[2016-05-13] MEDS: Polyethylene Glycol (PEG) 17 Gm Powder PO SCH (12:00)
--- NOTE | 2016-05-13 17:36 | PROG NOTE ---
[address] [address] PROGRESS NOTE PATIENT: VASU PAREKH : 1955 MR#: [id number] ADMIT: 05/10/2016 JOB ID: [id number] DATE: The patient remains afebrile with stable vital signs. Shahram-Hawkins drain and Interventional Radiology drain each put out 45 cc yesterday, serous fluid and bloody fluid respectively. His abdominal examination remains unchanged. White count has dropped down to 20 from 25, but his platelet count has climbed up to 448. His C. reactive protein remains elevated at 42.7, though his procalcitonin is dropping down to 13.78. Blood sugars have been 116 and 132 at the bedside. IMPRESSION AND PLAN: Doing well, continuing on Zosyn. He is quite anxious about getting out of the hospital. We talked about possible next steps. It will be decided by Dr. Kline. I will order a CBC, procalcitonin and C. reactive protein for tomorrow. I have chosen to leave his Shahram-Hawkins drain that is only draining serous fluid in over the weekend.
--- NOTE | 2016-05-13 18:39 | NUR ---
Activity/Bowels/Antbx/Drains Patient alert and oriented x3, BP within normal limits, SPO2 high 90s on RA, no reports of n/v, reports full sensation, tolerating PO intake well. Patient up multiple times throughout the shift, ambulating at least 1600 feet (multiple laps throughout the day) -- independent in the room. Patient reports "lots of gas and a lot of the time I am getting small bits of diarrhea with it" -- Dr. Gordillo aware, no new orders at this time. Patient reported no BM today, encouraged patient to notify RN with next BM for visualization/possible sampling. Per Dr. Gordillo's progress note, stated -- "Will discontinue IV antibiotics" however no official order. Dr. Gordillo consulted, when saw patient at 1300 reported vp clinical error where it was supposed to state "will continue antibiotics". 0830 IV Zosyn not administered until [address] Gordillo, rescheduled for next dose to be at 2100 tonight. T drain 10.5mls of sanguinous drainage, 10mls in ALEX drain serous drainage.
[2016-05-13] MEDS: diphenhydrAMINE 25 mg Capsule PO PRN (20:57)
[2016-05-14 03:22] LABS: BASOPHILS % (AUTO) 0.2 % (0-3); EOSINOPHILS % (AUTO) 2.1 % (0-5); MONOCYTES % (AUTO) 12.5 % (4-12); Mean Corpuscular Hemoglobin 29.5 pg (27.0-35.0); Mean Corpuscular Volume 87.1 fL (81-100); NEUTROPHILS % (AUTO) 76.9 % (40-74); Platelet Count 499 bil/L (150-400)
--- NOTE | 2016-05-14 05:08 | NUR ---
Pain/Sleep Pt reports he has ~5/10 abdominal pain which has been his baseline since surgery. He does not want to take anything besides Motrin for pain. Reports he has a difficult time finding a position to sleep in which aggravates pain as well, and makes it so he has not gotten great sleep the last few nights. Position change for comfort, and PO meds given for pain as accepted by pt. Care clustered for limited interruption and optimal sleep. Pt reports getting "better" sleep but still seems anxious. Care ongoing
[2016-05-14] MEDS: Piperacillin-Tazo 3.375 Gm Inj 3.375 GM in Dextrose 5% Minibag Plus 50 ML IV SCH ×2 (05:16→12:30)
[2016-05-14 05:27] VITALS: BP 112/70; PULSE 75; RESP 16; O2SAT 95
[2016-05-14] MEDS: Insulin LISPRO 300 Unit/3 mL Inj SUBQ SCH ×2 (08:00→12:29)
[2016-05-14 08:33] VITALS: BP 114/65; PULSE 73; RESP 16; O2SAT 93
--- NOTE | 2016-05-14 09:44 | PCM.PNSURG ---
Subjective Date of Service: May 14, 2016 Visit Information: Reason for Visit: Post-Op Fever, possible pancreatic leak s/o pancreatectomy Surgery/Surgery Date: 05/03/16, discharged 05/07/16. Readmitted 05/10/16 Post-Op Day 9 Date of Admission: May 10, 2016 at 21:54 Hospital Day 4 Subjective: Pt reports left-sided chest discomfort when lying supine but is otherwise without complaint and is ready to go home. He states that he is passing flatus and having loose bowel movements. He denies persistent chest pain, shortness of breath, nausea or vomiting. Ambulating and voiding without difficulty. Postop General: No Shortness of Breath, No Chest Pain (positional chest pain on the left, resolves when sitting upright) Gastrointestinal: Good Appetite, No N/V, Passing Flatus, Passing Stool Pain Management: PO Objective Vital Sign- Last 8 Hours Date Time Temp Pulse Resp B/P Pulse Ox O2 Delivery O2 Flow Rate FiO2 05/14/16 08:33 37.0 73 16 114/65 93 Room Air 05/14/16 05:27 36.9 75 16 112/70 95 Room Air Intake and Output- Last 8 Hour 05/14/16 Cumulative From/Thru 07:00 05/10/16 21:56 - 05/14/16 06:20 Intake Total 455 ml 7307 ml Output Total 635 ml 3385 ml Balance -180 ml 3922 ml Intake Oral 400 ml 4780 ml IV Total 55 ml 2527 ml Output Urine Total 600 ml 3150 ml Drainage Total 35 ml 235 ml # Voids 2 5 General: Alert, Oriented X3 Abdomen: Soft (incisions well healed, drains w/o evidence of inflammatory changes of surrounding skin. ), Appropriately tender, Non-distended Extremities: Warm (no edema) Result Diagram: 05/14/16 0315 05/11/16 0250 Lab & Micro Results: Laboratory Tests Test 05/14/16 03:15 White Blood Count 16.4th/mm3 (3.8-10.1) Red Blood Count 3.87mil/mm3 (4.40-5.80) Hemoglobin 11.4g/dL (13.8-17.2) Hematocrit 33.7% (41.0-50.0) Mean Corpuscular Volume 87.1fL (81-100) Mean Corpuscular Hemoglobin 29.5pg (27.0-35.0) Mean Corpuscular Hemoglobin Concent 33.8% (32.0-37.0) Red Cell Distribution Width 12.7% (12.3-15.4) Platelet Count 499bil/L (150-400) Neutrophils (%) (Auto) 76.9% (40-74) Lymphocytes (%) (Auto) 7.5% (14-46) Monocytes (%) (Auto) 12.5% (4-12) Eosinophils (%) (Auto) 2.1% (0-5) Basophils (%) (Auto) 0.2% (0-3) C-Reactive Protein 25.1mg/dL (0.0-0.5) Procalcitonin 8.30ng/mL (0.00-0.08) Microbiology 05/11/16 Gram Stain - Final, Resulted 05/11/16 Culture & Sensitivity - Preliminary, Resulted 05/11/16 Anaerobic Culture - Preliminary, Resulted Assessment & Plan Impression 60y/o male s/p distal pancreatectomy and splenectomy on 05/03/16 admitted on for post-operative fever and probable uncontrolled pancreatic leak with fluid loculated off from ALEX drain he was discharged with on 05/07/16. Now s/p IR drain placement with ~30mls of bloody drainage in last 24hs. He is tolerating a general diet, passing flatus and having loose bowel movements. He continues to report left sided positional chest pain that he currently states will not allow him to lie flat. Pain is relieved when upright. He remains afebrile, his white count, procalcitonin and CRP continue to trend down (wbc 16.4 today down from 20.1 yesterday; procalcitonin 8.3 down from 13.78; CRP 25.1 down from 42.7). Patient clinically feels well enough for discharge and is anxious to get home. Recommend repeat abdomen CT today to assess for residual fluid s/p drain placement and if no reaccumulation of peripancreatic fluid present discharge home with drains in place and plan to follow up with Dr. Kline as an outpatient. Will need to be discharge on oral antibiotics, today is day 4 of IV zosyn. Problems: VTE Prophylaxis: SCDs Resuscitation Status: CPR: Attempt Resuscitation Attending Statement: I examined the pt and I agree with Dr. Camacho's assessment and plan. Bonny Camacho DO May 14, 2016 09:24 Ventura Augustin MD May 14, 2016 17:29
--- NOTE | 2016-05-14 10:05 | DRSVH ---
PROCEDURE: CT ABDOMEN WITH CONTRAST ([id number]) INDICATIONS: Status post percutaneous drainage of peripancreatic fluid collection. Laboratory analysi s of the aspirated fluid demonstrated no organisms. TECHNIQUE: After the administration of intravenous contrast, 5 mm thick sections acquired from the diaphragm to the iliac crests. 5 mm coronal and sagittal reformats were performed. For radiation dose reduction, the following was used: automated exposure control, adjustment of mA and/or kV according to patient size. COMPARISON: [facility], CT, ABDOMEN/PELVIS WITH CONTRAST, 05/10/2016, 17:25. [facility], CT, CT ABCESS DRAIN PERITONEAL, 05/11/2016, 10:44. FINDINGS: Image quality: Excellent. Lung bases: Increased, small left pleural effusion. Increased, moderate left basilar airspace opacity . No change in right dependent basilar atelectasis versus scarring. Heart size is normal. Solid organs: Liver is within normal limits. Status post splenectomy. Gallbladder is within normal l imits. Biliary system is non dilated. Distal pancreatectomy has been performed, as before. The previ ously seen peripancreatic fluid collection has significantly decreased in size, with small amount of fluid remaining. No adrenal nodules. Bilateral renal cysts are present. There is an exophytic cyst p rotruding posteriorly from the right inferior pole kidney measuring 40 mm. This cyst measures a small focus of curvilinear mural enhancement along its lateral border, measuring 10 mm anteroposterior by 3 mm in thickness. Kidneys demonstrate otherwise normal size and enhancement, without hydronephrosis. Peritoneum and bowel: Bowel loops demonstrate normal wall thickness and caliber. Small amount of exp ected loculated pneumoperitoneum adjacent to the left upper quadrant drain. Pigtail drainage catheter adjacent to the greater curvature of the stomach and within the distal pancreatectomy bed is present . Surgical drain within the left paracolic gutter is present. Nodes and vessels: No retroperitoneal or mesenteric adenopathy by size criteria. Aorta and inferior vena cava are normal in size. Miscellaneous: No ventral hernias. IMPRESSION: 1. Resolving left upper quadrant fluid collection. 2. Increased left lower lobe pneumonia with increasing small parapneumonic effusion. 3. An exophytic cyst within the inferior pole right kidney demonstrates a small focus of curvilinear mural enhancement; low grade/cystic malignancy could produce the appearance. Recommend urological con sultation and/or followup imaging in 3 months to document stability, and to exclude underlying neopla sm. Dictated by: Jacob Nelson M.D. on 05/14/2016 at 9:54 Approved by: Jacob Nelson M.D. on 05/14/2016 at 10:03
[2016-05-14] MEDS: Polyethylene Glycol (PEG) 17 Gm Powder PO SCH (12:00)
[2016-05-14 12:26] VITALS: BP 110/67; PULSE 77; RESP 16; O2SAT 94
[2016-05-14] MEDS ORDERED: AMOX-366 PO (13:15)
--- NOTE | 2016-05-14 13:21 | PCM.DISURG ---
Surgical Discharge Instruction Date of Service May 14, 2016 Dates of Hospitalization Date of Hospital Admission May 10, 2016 at 21:54 Providers Admitting Physician: Kg Gordillo MD Primary Care Physician: Miko Ortega MD Attending Physician: Kg Gordillo MD Discharge Diagnosis Discharge Diagnosis s/p Distal pancreatectomy and splenectomy Drain x2 Diet Discharge Diet: Low fat Activity Discharge Activity-General: Activity as pain allows Dressing and Incisional Care Dressing Care: Keep dressing clean, dry & intact Hygiene: May shower Additional Instructions Discharge Instructions Drain care x2 Rx Augmentin one tablet twice daily for 7days Follow up with Dr. Kline on Saturday. Plan to discuss potential need for pancreatic enzyme with Dr. Kline. Follow Up Plan Follow-up Provider (F9): Eliel Kline MD Follow-up appointment: Days (2) Call your provider for: Fever, Chills, Shortness of breath, Increasing abdominal pain, Nausea, Vomiting Bonny Camacho DO May 14, 2016 13:21
--- NOTE | 2016-05-14 16:34 | NUR ---
Social Work Note: Discharge Data& Assessment: Per pt is medically ready to discharge home via POV with drain and follow up on an outpt basis for continued care. SW met with pt and pt at bedside to confirm discharge plan and assess for any unmet needs. Pt denies any other needs, pt family transporting home. Pt is independent in his room and at baseline. No other discharge needs identified. All updated and agreeable to plan. Plan: Per pt is medically ready to discharge home via POV with drain and follow up on an outpt basis for continued care.Pt denies any other needs, pt family transporting home. No other discharge needs identified. All updated and agreeable to plan. ZACHARY Randall
--- NOTE | 2016-05-14 16:45 | NUR ---
Discharge Patient ambulated off unit with [employer] and in a stable condition. IV DC'd intact, no tele to remove, all personal belongings with patient. New medication of Augmentin discussed -- twice daily for seven days and take until gone, patient and verbalized understanding. All other medications are to be continued with next due doses discussed. Nutrition consulted for diabetic diet -- patient verbalized understanding of diet in addition to Regular insulin sliding scale ordered by MD WOOD. Both ALEX and T drain remain in place, will follow up with Dr. Kline on Saturday05/16/16-- discussed showering and drain care, verbalized understanding.
--- NOTE | 2016-05-15 10:17 | PCM.DC.SUR ---
Discharge Summary Date of Service: Date of Hospital Admission: May 10, 2016 at 21:54 Date of Discharge: 05/14/2016 Diagnosis at Time of Discharge Primary diagnoses: 1. Postsurgical pancreatic leak with resulting peripancreatic/greater curvature fluid collection. 2. 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 Other diagnoses: Hypertension Problems: Brief History and Physical: The patient was recently discharged from the hospital on May 07, having undergone a laparoscopic hand-assisted distal pancreatectomy and splenectomy on May 03, 2016. He reported doing well at home and then having left chest pain. He called his son, who told him to call 911, and he was taken to [facility], where he had a negative cardiac workup but was noted to have a temperature of 103 degrees, an elevated white blood cell count and an abnormal CT scan. According to the patient, his chest pain resolved. He described that his Shahram-Hawkins drain that he went home with had only put out 3 cc over the previous 24 hours of clear fluid. He denied night sweats or feeling febrile. Consultants: None Hospital Course: The patient was admitted and the following day underwent percutaneous drain placement by interventional radiology for drainage of pancreatic leak fluid collection as the surgical drain had migrated. He remained in the hospital for several days receiving IV antibiotics. On his fifth hospital day, his date of discharge, he underwent repeat CT scan which showed that the peripancreatic fluid collection was drained in the IR drain was well placed. He was stable for discharge on that day. Pathology: None Disposition: The patient was discharged to home on his fifth hospital day. Follow-up Plan: He will follow-up in the office with Dr. Kline in 2 days. Amoxicillin/Clav K 875-125 mg (Augmentin 875-125 mg) 1 Each Tablet 1 TABLET PO BID Atenolol (Atenolol) 25 Mg Tablet 25 MG PO DAILY (Reported) Hydrochlorothiazide (Hydrochlorothiazide) 25 Mg Tablet 25 MG PO DAILY (Reported ) Ibuprofen (Advil) 200 Mg Capsule 800 MG PO Q6H PRN PRN For Pain (Reported) Insulin Regular, Human (HUMulin-R U100 Insulin Vial) 100 Unit/1 Ml Vial 0 UNIT SUBQ Q6 Lisinopril (Lisinopril) 20 Mg Tablet 20 MG PO DAILY (Reported) Polyethylene Glycol 3350 (Miralax) 17 Gm Powd.pack 17 GM PO NOON oxyCODONE (oxyCODONE) 5 Mg Tablet 5-10 MG PO Q6H PRN PRN For Moderate Pain copies to: Miko Ortega MD, Fred H PA-C May 15, 2016 10:17
--- NOTE | 2016-05-17 13:58 | NUR ---
NUTRITION CONSULT. Per surgery request, I contacted the patient this afternoon regarding his confusion over carbohydrate counting. He was told that he should have 5 carbs per meal but has confused carb portions with grams of carbohydrates. I sent a packet of information to him that discusses carbohydrate counting, meal planning, portions, etc. I left a message for his Iveth that the carb-controlled nutritional supplement surgery discussed with him is Glucerna and can be purchased at most drug and large grocery stores. Will follow up to answer questions.
== END 2016-05-14 16:43 | disposition home or self-care (01) | DRG 863 ==
LOC: PCC 21:54
PROVIDERS: ADMIT Surgery; ATTEND Surgery
PROC: 0W9G30Z Drainage of Peritoneal Cavity with Drainage Device, Percutaneous Approach (ICD-10-PCS; principal; 2016-05-11)
DX: T81.4XXA Infection following a procedure, initial encounter (principal); L02.818 Cutaneous abscess of other sites; I10 Essential (primary) hypertension; D3A.8 Other benign neuroendocrine tumors